=== PATIENT | female | born 1955 | race Caucasian/White ===

== ENCOUNTER 2024-04-02 20:05 | Inpatient (IN) ==
--- NOTE | 2024-04-02 20:31 | Emergency Department Note ---
History of Present Illness General Chief complaint: Leg Injury/Pain Stated complaint: FELL, RT LEG BREAK Time Seen by Provider: 04/02/24 20:19 History of Present Illness This 69-year-old female presents the ER for with a Maisonneuve fracture of the right leg. Patient was seen at [facility] and was splinted and she did not want to stay there for surgery and came here. Patient states she tripped and fell. Patient denies head injury, chest pain, dyspnea, numbness, tingling or any other medical complaints. She states she is healthy with no active medical problems. Allergies Allergy/AdvReac Type Severity Reaction Status Date / Time Penicillins Allergy Rash Verified 04/02/24 21:05 Past Med/Surg History Problem List (Updated 04/02/24 @ 21:32 by Giovana Odell PA-C) Closed fracture of right lower leg (Acute) Social History Smoking Status: Never smoker Preferred Language: Turkmen Feels Safe at Home: Yes Review of Systems A total of 10 systems reviewed and were otherwise negative Physical Exam Vital Signs Vital Signs - 24 hr 04/02/24 20:13 04/02/24 20:45 04/02/24 21:30 Temperature 36.5 C Temperature Source Temporal Artery Scan Pulse Rate 80 82 Pulse Rate [Apical] 71 Respiratory Rate 16 22 20 Respiratory Effort / Characteristics Non-Labored Non-Labored Spontaneous Respiratory Depth Normal Normal Respiratory Pattern Regular Regular Blood Pressure 153/111 H 164/85 H Blood Pressure [Right Arm] 160/86 H Blood Pressure Mean 125 111 Blood Pressure Mean [Right Arm] 110 Blood Pressure Position [Right Arm] Semi-fowlers Pulse Oximetry 95 98 97 Oxygen Delivery Method Room Air Room Air Room Air Sepsis Recent Fever Within 48 Hours No Sepsis New/Unexplained Change in Mental Status N/A Sepsis Action Taken by Nursing No Action Required 04/02/24 21:43 Temperature 37.0 C Temperature Source Oral Pulse Rate Pulse Rate [Apical] Respiratory Rate Respiratory Effort / Characteristics Respiratory Depth Respiratory Pattern Blood Pressure Blood Pressure [Right Arm] Blood Pressure Mean Blood Pressure Mean [Right Arm] Blood Pressure Position [Right Arm] Pulse Oximetry Oxygen Delivery Method Sepsis Recent Fever Within 48 Hours Sepsis New/Unexplained Change in Mental Status Sepsis Action Taken by Nursing VITALS: Vitals are noted on the nurse's note and reviewed by myself. Vital signs stable. GENERAL: Pleasant female, in no acute distress, nondiaphoretic, well-developed well-nourished. SKIN: Capillary reflex less than 2 seconds. HEENT: Normocephalic. PERRLA. EOMI. Nares patent. Mucous membranes moist. Neck is supple without nuchal rigidity. HEART: Regular rate and rhythm LUNGS: Clear to auscultation bilaterally without wheezes, rales or rhonchi. No retractions or accessory muscle use. MUSCULOSKELETAL: No gross musculoskeletal defects. Right lower leg tender to palpation over the proximal tib-fib and distal tib-fib. Right knee femur and foot nontender to palpation. NEURO: Patient was alert and oriented to person place and time. No focal neurological deficits. Course Administered Medications Discontinued Medications Acetaminophen (Ofirmev) 1,000 mg in 100 mls @ 400 mls/hr IV NOW STA Stop: 04/02/24 20:41 Last Infusion: 04/02/24 21:20 Dose: Infused Documented By: Admin: 04/02/24 21:04 Dose: 400 mls/hr Documented By: RAUL Morphine Sulfate (Morphine Sulfate 4 Mg/Ml 1 Ml Carp\Vial) 4 mg IV NOW STA Stop: 04/02/24 20:28 Last Admin: 04/02/24 21:04 Dose: 4 mg Documented By: RAUL Medical Decision Making Medical Records Attestation: I reviewed the patient's medical records. Home Medications Current Medication List: was personally reviewed by me Laboratory Data Attestation: I reviewed the patient's lab results. 04/02/24 20:55 04/02/24 20:55 Lab Results 04/02/24 Range/Units 20:55 WBC 9.67 (4.8-10.8) K/ul RBC 4.66 (4.20-5.40) M/uL Hgb 14.4 (12.0-16.0) g/dl Hct 41.3 (37.0-47.0) % MCV 88.6 (80.0-100.0) fL MCH 30.9 (25.0-34.0) pg MCHC 34.9 (32.0-36.0) g/dL RDW Std Deviation 40.3 (36.4-46.3) fL RDW Coeff of Ad 12.4 (11.5-14.5) % Plt Count 153 (130-400) K/uL MPV 11.3 (9.4-12.4) fL Immature Gran % (Auto) 0.2 % Neut % (Auto) 81.7 % Lymph % (Auto) 12.6 % [place] % (Auto) 5.2 % Eos % (Auto) 0.1 % Baso % (Auto) 0.2 % Neut # (Auto) 7.90 H (1.40-6.50) K/uL Lymph # (Auto) 1.22 (1.20-3.40) K/uL [place] # (Auto) 0.50 (0.11-0.59) K/uL Eos # (Auto) 0.01 (0.00-0.50) K/uL Baso # (Auto) 0.02 (0.00-0.20) K/uL Immature Gran # (Auto) 0.02 (0.01-0.20) K/uL Sodium 138 (136-145) mmol/L Potassium 4.1 (3.5-5.1) mmol/L Chloride 108 H (98-107) mmol/L Carbon Dioxide 22 (21-32) mmol/L Anion Gap 8 (3-11) BUN 13 (6-23) mg/dl Creatinine 0.70 (0.6-1.2) mg/dl Est Cr Clr Drug Dosing 90.2 ml/min eGFR 93.56 BUN/Creatinine Ratio 18.6 (10-20) Glucose 125 H (70-99(Fasting)) mg/dl Calcium 9.0 (8.6-10.3) mg/dl Total Bilirubin 0.5 (0.2-1.0) mg/dl AST 19 (13-39) U/L ALT 17 (7-52) U/L Alkaline Phosphatase 77 (34-104) U/L Total Protein 6.8 (6.0-8.3) gm/dl Albumin 4.1 (3.4-5.0) gm/dl Globulin 2.7 (2.5-4.0) gm/dl Albumin/Globulin Ratio 1.5 (0.9-2) Imaging Data Attestation: I personally reviewed and interpreted this imaging study as follows: MDM Narrative Prior records/ancillary studies reviewed. Triage Nursing notes reviewed. Additional history obtained from family. The patient's history was concerning for traumatic injury Differential diagnosis: Etiologies such as fracture, dislocation, intra-abdominal, pneumothorax, intrathoracic , intracranial, neurologic, as well as other traumatic pathologies were entertained. Physical examination findings: As above. The patients vitals were stable. ER treatment provided: Tylenol and morphine were ordered Splinting Indication: Maisonneuve fracture Location: Right lower leg Type of fx: Closed, displaced Verbal consent obtained. Risks and benefits were explained with the usual customary discussion. The injured extremity was identified. The patient was prepped and measured for the placement of a stirrup and posterior ortho-glass splint. Splint applied in the standard fashion over a layer of webril and secured using an elastic bandage. Set into a position of function. Normal neurovascular status after placement verified by me. The patient tolerated the procedure well and the care of the splint was discussed with the patient/family. No complications. An order was placed for continuous cardiac monitoring. The monitor shows a rate of 60-100 with a sinus rhythm per my interpretation. On reassessment the patient felt better. Vital signs were stable. Diagnostic interpretation by me: The labs Independently Interpreted by myself revealed no worrisome leukocytosis, glucose 125. Stable H&H. Imaging studies: Tib-fib and ankle x-rays concerning for Maisonneuve fracture per my independent interpretation. These were uploaded into the PACS system that were done at [facility] Consultation: A consultation was placed with hospitalist. The case was discussed and diagnostics were reviewed. The patient was evaluated for admission. This appears to be consistent with unstable right lower leg fracture, Maisonneuve fracture. Patient was in too much pain to go home. Medicine was consulted and the case was discussed. Patient will be admitted to the medical service.. By the evaluation outlined above emergent etiologies such as intra- abdominal, pneumothorax, pulmonary contusion, hemothorax, intracranial, neurologic,as well as others were deemed relatively unlikely. The pt informed about the findings as listed above. All questions were answered and pleased with the treatment. The chart was completed utilizing [employer] Speech voice recognition software. Grammatical errors, random word insertions, pronoun errors, and incomplete sentences are an occassional consequence of this system due to software limitations, ambient noise, and hardware issues. Any formal questions or concerns about the content, text, or information contained within the body of this dictation should be directly addressed to the physician web production assistant for clarification. Impression & Plan Closed fracture of right lower leg Discharge Plan Visit Data Chief Complaint: Leg Injury/Pain Stated Complaint: FELL, RT LEG BREAK ED Provider: Ariana Jane ED Midlevel Provider: Giovana Odell Discharge Problem: Closed fracture of right lower leg Patient Disposition: Admitted As Inpatient Condition: Good Forms Stand Alone Forms: [facility] Referrals Referrals: PCP,NO [Physician] - Discharge Problem: Closed fracture of right lower leg Qualifiers: Encounter type: initial encounter Qualified Code(s): S82.91XA - Unspecified fracture of right lower leg, initial encounter for closed fracture
[2024-04-02] MEDS ORDERED: ACETAMINOPHEN 325 MG TAB PO PRN (20:40)
[2024-04-02] MEDS ORDERED: oxyCODONE HCL IR 5 MG TAB (IMMEDIATE RELEASE) PO PRN (20:40)
[2024-04-02] MEDS ORDERED: MoRPHine SULFATE 4 MG/ML 1 ML CARP\\VIAL IV PRN (20:40)
[2024-04-02] MEDS ORDERED: LORazepam 0.5 MG TAB PO PRN (20:40)
[2024-04-02] MEDS ORDERED: PROMETHAZINE 6.25 MG/50.25 ML BAG IV PRN (20:40)
[2024-04-02] MEDS: ACETAMINOPHEN 1,000 MG/100 ML VIAL IV STA (21:04)
[2024-04-02] MEDS: MoRPHine SULFATE 4 MG/ML 1 ML CARP\\VIAL IV STA (21:04)
[2024-04-02 21:33] LABS: Albumin Globulin Ratio 1.5 (0.9-2); Albumin Level 4.1 gm/dl (3.4-5.0); BUN Creatinine Ratio 18.6 (10-20); Bilirubin,Total 0.5 mg/dl (0.2-1.0); Creatinine Clr Calc Pharmacy 90.2 ml/min; Globulin 2.7 gm/dl (2.5-4.0); Potassium 4.1 mmol/L (3.5-5.1); Total Protein 6.8 gm/dl (6.0-8.3)
[2024-04-02 21:41] LABS: Basophils # (auto) 0.02 K/uL (0.00-0.20); Basophils % (auto) 0.2 %; Eosinophils # (auto) 0.01 K/uL (0.00-0.50); Eosinophils % (auto) 0.1 %; Hematocrit (blood only) 41.3 % (37.0-47.0); Hemoglobin 14.4 g/dl (12.0-16.0); Immature Granulocytes # (auto) 0.02 K/uL (0.01-0.20); Immature Granulocytes % (auto) 0.2 %; Lymphocytes # (auto) 1.22 K/uL (1.20-3.40); Lymphocytes % (auto) 12.6 %; Mean Corpuscular Hemoglobin 30.9 pg (25.0-34.0); Mean Corpuscular Hgb Conc 34.9 g/dL (32.0-36.0); Mean Corpuscular Volume 88.6 fL (80.0-100.0); Mean Platelet Volume 11.3 fL (9.4-12.4); Monocytes % (auto) 5.2 %; Neutrophils % (auto) 81.7 %; Platelet Count 153 K/uL (130-400); RDW Coefficient of Variation 12.4 % (11.5-14.5); RDW Standard Deviation 40.3 fL (36.4-46.3); Red Blood Count 4.66 M/uL (4.20-5.40); White Blood Count 9.67 K/ul (4.8-10.8)
--- NOTE | 2024-04-02 21:53 | History & Physical Report ---
Date of Service April 02, 2024 Assessment & Plan (1) Asymptomatic hypertensive urgency: Plan: Secondary to traumatic RLE fracture Likely chronic BP elevation given LAE on EKG Hyperglycemia rule out DM GMF Initiate lisinopril Orthopedics consult Re: Traumatic RLE fracture (Patient requesting for Dr. Strong.) N.p.o. after midnight until patient seen by orthopedics in anticipation of procedure Check hemoglobin A1c DVT prophylaxis. SCDs re: possible surgery Full code Text document was generated using [email or web address] voice recognition software. It may contain grammatical or spelling errors. Kindly contact undersigned for clarification of any documentation item in question. History of Present Illness Chief Complaint: Right leg fracture Primary Care Provider: Dr. Sigala History obtained from patient, family, and records. No significant medical history. Patient tripped outside her home today causing her to fall down on her right leg. No head trauma, no chest pain, no syncope, no SOB. Achy right lower leg pain. Patient unable to get up. SBP 190s upon EMS arrival at patient's home. Patient transported by EMS to [facility] ER. Patient told she had a Maisonneuve fracture of the right lower leg. Admission for surgery recommended but patient declined. Patient preferred to go to [facility] for orthopedic services following her physician brother's recommendations. Patient transported to [facility] by . Highest SBP of 180s documented at the ER. 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 Allergies Allergy/AdvReac Type Severity Reaction Status Date / Time Penicillins Allergy Rash Verified 04/02/24 21:05 Home Medications Medication Instructions Recorded Confirmed Type No Known Home Medications 04/02/24 04/02/24 History Past Med/Surg History Problem List Asymptomatic hypertensive urgency Closed fracture of right lower leg (Acute) Social History Smoking Status: Never smoker Hx Alcohol Use: No Hx Substance Use: No Preferred Language: Emirati Communication Ability: Effective Sap Specialist Required: No Beliefs That Will Affect Care: None Current Living Situation: Spouse Other Information That Helps Us Care for You: No Feels Safe at Home: Yes Safety Concerns: Feels Safe At This Time Assistive Devices: Glasses Review of Systems Review of Systems: As per HPI, all other systems reviewed and negative Physical Exam Physical Exam: GENERAL: Comfortable, pleasant, no respiratory distress SKIN: Normal color, warm HEENT: Bespectacled, [place] palpebral conjunctivae, no ptosis, moist buccal mucosa NECK : Supple, no tenderness CHEST : CTA, no tenderness HEART : RRR, no obvious murmurs ABDOMEN: Some distention, nontender EXTREMITIES : RLE splint, no other conspicuous deformities noted NEUROLOGIC : Coherent, no facial asymmetry, no other gross focality Results & Data Results & Data Vital Signs (Past 12 Hours) Vital Signs Temp Pulse Resp BP Pulse Ox O2 Del Method 04/02/24 20:13 36.5 C 80 16 153/111 H 95 Room Air Laboratory Results Laboratory Results WBC 9.67 K/ul (4.8-10.8) 04/02/24 20:55 RBC 4.66 M/uL (4.20-5.40) 04/02/24 20:55 Hgb 14.4 g/dl (12.0-16.0) 04/02/24 20:55 Hct 41.3 % (37.0-47.0) 04/02/24 20:55 MCV 88.6 fL (80.0-100.0) 04/02/24 20:55 MCH 30.9 pg (25.0-34.0) 04/02/24 20:55 MCHC 34.9 g/dL (32.0-36.0) 04/02/24 20:55 RDW Std Deviation 40.3 fL (36.4-46.3) 04/02/24 20:55 RDW Coeff of Ad 12.4 % (11.5-14.5) 04/02/24 20:55 Plt Count 153 K/uL (130-400) 04/02/24 20:55 MPV 11.3 fL (9.4-12.4) 04/02/24 20:55 Immature Gran % (Auto) 0.2 % 04/02/24 20:55 Neut % (Auto) 81.7 % 04/02/24 20:55 Lymph % (Auto) 12.6 % 04/02/24 20:55 [place] % (Auto) 5.2 % 04/02/24 20:55 Eos % (Auto) 0.1 % 04/02/24 20:55 Baso % (Auto) 0.2 % 04/02/24 20:55 Neut # (Auto) 7.90 K/uL (1.40-6.50) H 04/02/24 20:55 Lymph # (Auto) 1.22 K/uL (1.20-3.40) 04/02/24 20:55 [place] # (Auto) 0.50 K/uL (0.11-0.59) 04/02/24 20:55 Eos # (Auto) 0.01 K/uL (0.00-0.50) 04/02/24 20:55 Baso # (Auto) 0.02 K/uL (0.00-0.20) 04/02/24 20:55 Immature Gran # (Auto) 0.02 K/uL (0.01-0.20) 04/02/24 20:55 Sodium 138 mmol/L (136-145) 04/02/24 20:55 Potassium 4.1 mmol/L (3.5-5.1) 04/02/24 20:55 Chloride 108 mmol/L (98-107) H 04/02/24 20:55 Carbon Dioxide 22 mmol/L (21-32) 04/02/24 20:55 Anion Gap 8 (3-11) 04/02/24 20:55 BUN 13 mg/dl (6-23) 04/02/24 20:55 Creatinine 0.70 mg/dl (0.6-1.2) 04/02/24 20:55 Est Cr Clr Drug Dosing 90.2 ml/min 04/02/24 20:55 eGFR 93.56 04/02/24 20:55 BUN/Creatinine Ratio 18.6 (10-20) 04/02/24 20:55 Glucose 125 mg/dl (70-99(Fasting)) H 04/02/24 20:55 Calcium 9.0 mg/dl (8.6-10.3) 04/02/24 20:55 Total Bilirubin 0.5 mg/dl (0.2-1.0) 04/02/24 20:55 AST 19 U/L (13-39) 04/02/24 20:55 ALT 17 U/L (7-52) 04/02/24 20:55 Alkaline Phosphatase 77 U/L (34-104) 04/02/24 20:55 Total Protein 6.8 gm/dl (6.0-8.3) 04/02/24 20:55 Albumin 4.1 gm/dl (3.4-5.0) 04/02/24 20:55 Globulin 2.7 gm/dl (2.5-4.0) 04/02/24 20:55 Albumin/Globulin Ratio 1.5 (0.9-2) 04/02/24 20:55 Diagnostic Findings EKG as per my interpretation : Rate 70, NSR, LAD, LAFB, LAE, no ischemia
[2024-04-02] MEDS: cloNIDine HCL 0.1 MG TAB PO ONE (22:57)
[2024-04-03] MEDS: lisinopril 2.5 MG TAB PO SCH (00:21)
--- NOTE | 2024-04-03 07:31 | Anesthesiology Consultation ---
Date of Service April 03, 2024 Assessment & Plan Chart Review Chart Review: Acceptable Risk for Surgery and Patient NOT seen in Pre Admission Testing Consults Requested none ASA ASA2 Proposed Anesthesia Anesthesia Type: General History Surgery Operation Date: 04/03/24 09:00 Proposed Procedures p Intramedullary Nail Tibia(Right) - Franki Canseco DO Height/Weight Height: 5 ft 9 in Weight: 85 kg Allergies Allergy/AdvReac Type Severity Reaction Status Date / Time Penicillins Allergy Rash Verified 04/02/24 21:05 Medications Home Medications Medication Instructions Recorded Confirmed Last Taken No Known Home Medications 04/02/24 04/02/24 Unknown Active Medications Generic Name Dose Route Start Last Admin Trade Name Freq PRN Reason Stop Dose Admin Lisinopril 2.5 mg 04/02/24 22:10 04/03/24 00:21 Lisinopril 2.5 Mg Tab PO 05/02/24 22:09 Not Given HS BARBARA Exercise / Class Metabolic Activity II 4-5 Yardwork/Stairs/Walk up hill Past Anesthesia History No Hx of Anesthesia Complications and No Family Hx of Anesthesia Complications History of PONV No Hx of PONV and No Hx of Motion Sickness Social History Smoking Status: Never smoker Hx Alcohol Use: No Hx Substance Use: No substance use type: does not use Physical Exam Vital Signs Last Vital Signs Temp 36.3 C L 04/02/24 23:39 Pulse 82 04/02/24 23:39 Resp 16 04/02/24 23:39 BP 145/75 H 04/03/24 00:21 Pulse Ox 95 04/02/24 23:39 O2 Del Method Room Air 04/02/24 23:39 Testing Laboratory Results 04/02/24 20:55 04/02/24 20:55 Electrocardiogram Date: 04/02/24 Findings: + NSR @ (@ 33)
[2024-04-03] MEDS ORDERED: ONDANSETRON INJ 2 MG/ML 2 ML VIAL ONE (07:35)
[2024-04-03] MEDS ORDERED: MIDAZOLAM HCL 1 MG/ML 2ML VIAL ONE (07:35)
[2024-04-03] MEDS ORDERED: ROCURONIUM BROMIDE 10 MG/ML 5 ML VIAL IV ONE (07:35)
[2024-04-03] MEDS ORDERED: fentaNYL citrate PF 100 MCG/2 ML VIAL ONE (07:35)
[2024-04-03] MEDS ORDERED: SUGAMMADEX SODIUM 200 MG/2 ML VIAL IV ONE (07:35)
[2024-04-03] MEDS ORDERED: PROPOFOL IV EMULSION 10 MG/ML 20 ML VIAL IV ONE (07:35)
--- NOTE | 2024-04-03 07:47 | Orthopedic Consultation ---
Date of Service April 03, 2024 Assessment & Plan (1) Closed fracture of right lower leg: We discussed diagnosis and treatment options at bedside. I am recommending intramedullary nail fixation of the right tibia. She understands the risk, benefits, and alternatives to procedures like an proceed. Questions were answered at bedside. Time was spent scribing the procedure and postop expectations. The decision was made for surgery and we should proceed with it later this morning. History of Present Illness Reason for Consultation: Right tibial shaft fracture. Requesting Physician: . Attending Physician: Minoo Harp MD Julita is a pleasant 69-year-old female who slipped and fell in some acorns yesterday. She twisted her right leg. She had severe right leg pain. She went to [facility] emergency room and radiographs demonstrated a displaced right tibial shaft fracture. She was then transferred to [facility]. Orthopedics was consulted to evaluate and treat.. 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 Physical Exam On physical exam of the right leg, she has a trauma splint in place. She is active motion of her toes. She is neurovascular intact.. Constitutional WD/WN, vitals as above Eyes PERRL, conjunctivae normal, anicteric sclerae ENMT external ear and nose normal, oropharynx normal Neck trachea midline, no thyromegaly Respiratory normal respiratory effort Cardiovascular RRR, no murmur, no edema Gastrointestinal (Abdomen) normal bowel sounds, soft, nontender, no hepatosplenomegaly Psychiatric A+Ox3, euthymic affect Results & Data Results & Data Laboratory Results . Diagnostic Findings X-rays of the right ankle show a displaced right tibial shaft fracture. The fractures at the distal third of the tibial diaphysis. There is also an associated proximal fibular fracture.. PG Care Time/CCT Total # of Minutes Spent Total Time Spent with Patient: Total time spent is greater than 50% in coordination of care (as documented) at patient's floor/unit and/or counseling patient: Coding Level of Care Code 14328 IN/OBS CONSULT LVL 4,60M (57 - DECISION FOR SURGERY) Diagnoses Closed fracture of right lower leg S82.91XA Encounter type: initial encounter (1) Closed fracture of right lower leg Encounter type: initial encounter Qualified Code(s): S82.91XA - Unspecified fracture of right lower leg, initial encounter for closed fracture
--- NOTE | 2024-04-03 07:47 | History & Physical Bridge Note ---
Date of Service April 03, 2024 History & Physical Bridge Note I have examined the patient, reviewed the History & Physical and in the interval since the performance of the History & Physical I have noted the following changes of clinical significance: no changes noted
[2024-04-03 08:07] LABS: Estimated Average Glucose 114 mg/dl; Hemoglobin A1C 5.6 % (4.5-5.6)
--- NOTE | 2024-04-03 08:24 | Hospitalist Progress Note ---
Date of Service April 03, 2024 Assessment & Plan (1) Closed fracture of right lower leg: (2) Asymptomatic hypertensive urgency: Plan Ms Ford is a 69 year old woman with no reported medical history admitted for management of right tib-fib fracture sustained after a fall, now s/p intramedullary nailing of right tibia on 04/03. #Closed right lower extremity fracture s/p intramedullary nail 04/[address] Canseco scheduling tylenol continue prn analgesia PT/OT placed apixaban dvt ppx per ortho Ortho following, appreciate recs Continue IS #Hypertensive urgency likely iso pain, as well as possible chronicity started on lisinopril, however given no CKD or know cardiac disease will transition to first like amlodipine CTM closely iso post operative management #Hyperglycemia rule out DM A1C 5/6%, CTM DVT prophylaxis. elquis 2.5 bid Full code Admission and Anticipated Discharge Date Admission Date: April 02, 2024 Subjective evaluated post operatively denies any acute pain at time of exam or other concerns Physical Exam Constitutional: WD/WN, vitals as above Respiratory: normal respiratory effort, lungs clear to auscultation Cardiovascular: RRR, no murmur, no edema Gastrointestinal (Abdomen): normal bowel sounds, soft, nontender, no hepatosplenomegaly Musculoskeletal: right lower extremity in dressing CDI Results & Data Results & Data Vital Signs (Past 12 Hours) Vital Signs Temp Pulse Pulse Pulse Resp BP BP 04/03/24 07:44 37.0 C 79 18 04/03/24 00:21 145/75 H 04/02/24 23:39 04/02/24 23:39 36.3 C L 82 16 04/02/24 22:56 82 16 04/02/24 22:30 04/02/24 22:00 63 16 04/02/24 21:43 37.0 C 04/02/24 21:30 71 20 04/02/24 20:45 82 22 164/85 H BP Pulse Ox O2 Del Method 04/03/24 07:44 175/83 H 96 Room Air 04/03/24 00:21 04/02/24 23:39 Room Air 04/02/24 23:39 188/83 H 95 Room Air 04/02/24 22:56 96 Room Air 04/02/24 22:30 147/73 H 04/02/24 22:00 153/75 H 94 04/02/24 21:43 04/02/24 21:30 160/86 H 97 Room Air 04/02/24 20:45 98 Room Air Laboratory Results Short CBC 04/02/24 Range/Units 20:55 WBC 9.67 (4.8-10.8) K/ul Hgb 14.4 (12.0-16.0) g/dl Hct 41.3 (37.0-47.0) % Plt Count 153 (130-400) K/uL BMP 04/02/24 20:55 Sodium 138 Potassium 4.1 Chloride 108 H Carbon Dioxide 22 BUN 13 Creatinine 0.70 Glucose 125 H Calcium 9.0 Liver Function 04/02/24 Range/Units 20:55 Total Bilirubin 0.5 (0.2-1.0) mg/dl AST 19 (13-39) U/L ALT 17 (7-52) U/L Alkaline Phosphatase 77 (34-104) U/L Albumin 4.1 (3.4-5.0) gm/dl Medications Administered Home Medications Medication Instructions Recorded Confirmed Last Taken No Known Home Medications 04/02/24 04/02/24 Unknown Active Medications Generic Name Dose Route Start Last Admin Trade Name Tomiq PRN Reason Stop Dose Admin Ketorolac Tromethamine 15 mg 04/03/24 12:00 04/03/24 12:07 Ketorolac Tromethamine 15 Mg/Ml Vial IV 04/05/24 06:01 15 mg Q6H BARBARA Administration Lisinopril 2.5 mg 04/02/24 22:10 04/03/24 00:21 Lisinopril 2.5 Mg Tab PO 05/02/24 22:09 Not Given HS BARBARA (1) Closed fracture of right lower leg Encounter type: initial encounter Qualified Code(s): S82.91XA - Unspecified fracture of right lower leg, initial encounter for closed fracture
[2024-04-03] MEDS ORDERED: ceFAZolin 330 MG/ML 1 GM VIAL ONE (08:51)
[2024-04-03] MEDS ORDERED: ONDANSETRON INJ 2 MG/ML 2 ML VIAL IV PRN (09:00)
[2024-04-03] MEDS ORDERED: ePHEDrine sulfate 50 MG/ML AMP IV PRN (09:00)
[2024-04-03] MEDS ORDERED: PROMETHAZINE HCL 6.25 MG in SODIUM CHLORIDE 0.9% 50 ML IV PRN (09:00)
[2024-04-03] MEDS ORDERED: ATROPINE SULFATE 0.1 MG/ML 10ML SYR IV PRN (09:00)
[2024-04-03] MEDS ORDERED: HYDROmorphone INJ 1 MG/ML SYRINGE IV PRN (09:00)
[2024-04-03] MEDS ORDERED: FLUMAZENIL 0.1 MG/1 ML 10 ML VIAL IV PRN (09:00)
[2024-04-03] MEDS ORDERED: NALOXONE HCL 0.4 MG/1 ML VIAL/CARP IV PRN ×2 (09:00→11:35)
[2024-04-03] MEDS ORDERED: fentaNYL citrate PF 100 MCG/2 ML VIAL IV PRN (09:00)
[2024-04-03] MEDS: ENOXAPARIN INJ 30 MG/0.3 ML SYR SQ SCH (10:55)
--- NOTE | 2024-04-03 10:55 | Operative Report ---
PG Post Operative Report Pre & Post Diagnosis Operation Date: 04/03/24 09:00 Pre-Op Diagnosis: Displaced right tib-fib fracture Post-Op Diagnosis: Displaced right tib-fib fracture I identified the patient and participated in the time-out.: Yes Procedure Operation Date: 04/03/24 09:00 Actual Procedures p Intramedullary Nail Fixation of Right Tibia(Right) - Franki Canseco DO Surgeon Franki Canseco DO Foundry Tender None Estimated Blood Loss 30 Findings Consistent with Post-Op Diagnosis Specimens None Description of Procedure On April 03, 2024 Julita was brought down from her hospital bed to the preoperative holding area. The operative extremity identified and signed. She was given a preoperative antibiotic. She was taken back the operative room and laid on table supine position. She was put under general anesthesia. The right leg was prepped and draped sterile fashion. A timeout was done. The patient and the operative extremity was properly identified. A midline incision was made just medial to the patella tendon. Dissection was taken down through the fascia. The arthrotomy was made just medial to the patella tendon. A small portion of fat pad was excised. The knee was then flexed. A guidepin was then placed in the center of the tibial plateau along the anterior rim. It was advanced down the tibial canal. Appropriate placement of the guidepin was checked on orthogonal fluoroscopic images. An opening reamer was then used to open the tibial canal. A ball-tipped guidewire was then sent down the tibia to the ankle. I was struggling maintaining adequate reduction of the fracture. A small incision was then made over the fracture site along the medial tibial crest. Dissection was taken down to directly to the fracture. A large reduction clamp was used and the tibia was reduced. Sequential reaming up to a size 9.5 mm reamer was done. A Synthes 8 mm x 360 mm TFN nail was then impacted into place. Appropriate placement was checked on orthogonal fluoroscopic images. The fracture remained reduced. Once I was happy with the placement of the tibial nail, 2 proximal locking screws were placed in a medial to lateral direction. Attention was then turned to the distal tibia. 3 static locking screws were then placed in the distal fracture fragment. This was done using perfect [place] technique. All clamps and out rigors were then removed. A single flush Was placed on the top of the tibial nail. Final fluoroscopic images showed acceptable alignment of the fracture and good placement of the screws and the hardware. The wounds were then irrigated. The arthrotomy was closed with #1 Vicryl suture. Skin was closed with 2-0 Vicryl and luis alfredo. Small screw holes were closed with 3-0 nylon suture. She was then placed in a posterior splint. She was then extubated and transferred back to a hospital bed. She was taken to the postanesthesia care unit in stable condition. She tolerated the procedure well. I attest to the content of the Intraoperative Record and any orders documented therein. Any exceptions are noted below.
--- NOTE | 2024-04-03 11:17 | Fluoroscopy Report ---
FL tibia/fibula RT 2V CLINICAL HISTORY: RT TIB IM NAIL- DR. Morales right ankle fracture COMPARISON STUDY: Ankle radiographs of same day FLUOROSCOPY TIME: 148.5 seconds FLUOROSCOPY IMAGES: 4 EXPOSURE DOSE: 8.03 mGy FINDINGS: Status post placement of an intramedullary kelsey with proximal and distal fixation screws fix ating the acute distal tibial fracture. There is near-anatomic alignment. Acute mildly displaced comm inuted proximal fibular fracture. Expected postoperative soft tissue swelling. IMPRESSION: Fluoroscopic assistance as above. ACT 112: Negative or not required by law. Electronically signed by: Diogenes Marie M.D. 04/03/2024 11:15 AM
--- NOTE | 2024-04-03 11:29 | Anesthesiology Progress Note ---
Date of Service April 03, 2024 Anesthesia Post Procedure Vital Signs Vital Signs: Temp Pulse Pulse Pulse Resp BP BP 04/03/24 11:15 36.8 C 95 H 23 04/03/24 11:05 100 H 22 04/03/24 10:55 96 H 18 04/03/24 10:49 37.0 C 101 H 20 04/03/24 07:44 37.0 C 79 18 04/03/24 00:21 145/75 H 04/02/24 23:39 04/02/24 23:39 36.3 C L 82 16 04/02/24 22:56 82 16 04/02/24 22:30 04/02/24 22:00 63 16 04/02/24 21:43 37.0 C 04/02/24 21:30 71 20 04/02/24 20:45 82 22 164/85 H 04/02/24 20:13 36.5 C 80 16 153/111 H BP Pulse Ox O2 Del Method O2 Flow Rate 04/03/24 11:15 170/87 H 92 Room Air 04/03/24 11:05 166/94 H 93 Oxymask 2 04/03/24 10:55 176/94 H 93 Oxymask 4 04/03/24 10:49 170/93 H 92 Oxymask 4 04/03/24 07:44 175/83 H 96 Room Air 04/03/24 00:21 04/02/24 23:39 Room Air 04/02/24 23:39 188/83 H 95 Room Air 04/02/24 22:56 96 Room Air 04/02/24 22:30 147/73 H 04/02/24 22:00 153/75 H 94 04/02/24 21:43 04/02/24 21:30 160/86 H 97 Room Air 04/02/24 20:45 98 Room Air 04/02/24 20:13 95 Room Air Transfer of Care Handoff Completed per policy Notes Mental Status: alert / awake / arousable Patient Amnestic to Procedure: Yes Nausea / Vomiting: adequately controlled Pain: adequately controlled Airway Patency, RR, SpO2: stable & adequate BP & HR: stable & adequate Hydration State: stable & adequate Anesthetic Complications: no major complications apparent
[2024-04-03] MEDS ORDERED: MAGNESIUM HYDROXIDE SUSP 30 ML UDC PO PRN (11:35)
[2024-04-03] MEDS ORDERED: HYDROmorphone INJ 0.5 MG/0.5 ML SYR IV PRN (11:35)
[2024-04-03] MEDS ORDERED: bisacodyL 10 MG SUPP PR PRN (11:35)
[2024-04-03] MEDS ORDERED: METOCLOPRAMIDE HCL INJ 5 MG/ML 2 ML VIAL IV PRN (11:35)
[2024-04-03] MEDS: KETOROLAC TROMETHAMINE 15 MG/ML VIAL IV SCH (12:07)
[2024-04-03] MEDS: BUPIVACAINE/EPINEPHRINE 0.25% 1:200,000 30 ML VIAL ONE (12:38)
--- NOTE | 2024-04-03 14:39 | XRay Report ---
EXAM: Radiographs of the Right Ankle 3 Views INDICATION: Fracture. Casted. TECHNIQUE: Frontal, lateral and oblique views of the right ankle. Images obtained at 7:16 AM. COMPARISON: No relevant prior studies available. FINDINGS: Limitations: None. Bones/joints: There is no acute mildly comminuted largely oblique fracture of the distal tibial shaft with 1 shaft width lateral displacement and approximately 2 cm override. Partially imaged acute proximal fibular fracture. The ankle mortise is symmetric. There is a tiny developing plantar calcaneal spur. Soft tissues: The place there is a plaster cast. No other foreign body noted. IMPRESSION: Acute fracture right distal tibial and proximal fibular shafts. ACT 112: Positive. There are findings on this exam that require communication between the performing entity and the patient following Patient Test Result Information Act ([place] ACT 112) guidelines. Electronically signed by Mera Mejia 04-03-2024 2:39 PM
[2024-04-03] MEDS: amLODIPine BESYLATE 5 MG TAB PO ONE (14:53)
[2024-04-03] MEDS: ACETAMINOPHEN 500 MG TAB PO SCH (14:53)
[2024-04-03 15:20] VITALS: RESP 16
[2024-04-03] MEDS: ceFAZolin 1000MG 1,000 MG/7.5 ML SYR IV SCH (17:58)
--- NOTE | 2024-04-03 19:03 | XRay Report ---
EXAM: Radiographs of the Right Tibia and Fibula 2 Views INDICATION: Fracture. TECHNIQUE: Frontal and lateral views of the right tibia and fibula. Images obtained at 7:15 AM. COMPARISON: No relevant prior studies available. FINDINGS: Bones/joints: There is an acute oblique fracture of the distal tibial shaft displaced laterally by three-quarter shaft width and minimally distracted. There is an acute comminuted fracture of the proximal fibular neck which is minimally impacted and displaced 1 cortex with laterally. Soft tissues: The leg is casted. IMPRESSION: Acute fractures right distal tibial and proximal fibular shafts. ACT 112: Positive. There are findings on this exam that require communication between the performing entity and the patient following Patient Test Result Information Act ([place] ACT 112) guidelines. Electronically signed by Mera Mejia 04-03-2024 7:02 PM
--- NOTE | 2024-04-03 19:30 | Electrocardiogram Report ---
Test Reason : Blood Pressure : */* mmHG Vent. Rate : 70 BPM Atrial Rate : 70 BPM P-R Int : 140 ms QRS Dur : 92 ms QT Int : 404 ms P-R-T Axes : 63 9 34 degrees QTcB Int : 436 ms Normal sinus rhythm Normal ECG No previous ECGs available Confirmed by Phyllis Hunt (Ara) on 04/03/2024 7:29:39 PM Referred By: Rufus Dominguez Confirmed By: Phyllis Hunt
[2024-04-03] MEDS: DOCUSATE SODIUM 100 MG CAP PO SCH (21:31)
[2024-04-03] MEDS: SENNA 8.6 MG TAB PO SCH (21:33)
[2024-04-04] MEDS: oxyCODONE HCL IR 5 MG TAB (IMMEDIATE RELEASE) PO PRN (01:27)
--- NOTE | 2024-04-04 07:23 | Orthopedic Progress Note ---
Date of Service April 04, 2024 Assessment & Plan (1) Closed fracture of right lower leg: Overall she is doing fairly well. She is not having too much pain. She will be seen by physical therapy today for ambulation with nonweightbearing instructions on the right leg. I do want her on Eliquis 2.5 mg twice a day for 6 weeks to help with the blood clots. She can be discharged to home today if she does well with therapy. She will follow-up with orthopedics in 2 weeks. Full orthopedic discharge instructions were placed in the discharge summary. Jaquelin Cancino was seen and examined at bedside this morning. Overall she is doing very well. She is not having much pain in the right leg. She has not been up and ambulating yet. She has no complaints.. Review of Systems All systems reviewed & are unremarkable except as noted in HPI & below. Physical Exam On physical exam of the right leg, the trauma splint in place. She is active motion of her toes. She has good capillary refill.. Results & Data Results & Data Laboratory Results . Diagnostic Findings . PG Care Time/CCT Total # of Minutes Spent Total Time Spent with Patient: Total time spent is greater than 50% in coordination of care (as documented) at patient's floor/unit and/or counseling patient: Coding Level of Care Code 96059 Post Operative Follow-Up Diagnoses Closed fracture of right lower leg S82.91XA Encounter type: initial encounter (1) Closed fracture of right lower leg Encounter type: initial encounter Qualified Code(s): S82.91XA - Unspecified fracture of right lower leg, initial encounter for closed fracture
[2024-04-04] MEDS: dexAMETHasone 4 MG TAB PO SCH (07:33)
[2024-04-04] MEDS: MULTIVITAMIN TAB PO SCH (07:34)
[2024-04-04] MEDS: APIXABAN 2.5 MG TAB PO SCH (07:34)
[2024-04-04] MEDS: amLODIPine BESYLATE 5 MG TAB PO SCH (07:35)
[2024-04-04 07:52] LABS: Hematocrit (blood only) 38.2 % (37.0-47.0); Hemoglobin 12.7 g/dl (12.0-16.0); Mean Corpuscular Hemoglobin 30.8 pg (25.0-34.0); Mean Corpuscular Hgb Conc 33.2 g/dL (32.0-36.0); Mean Corpuscular Volume 92.7 fL (80.0-100.0); Mean Platelet Volume 11.1 fL (9.4-12.4); Platelet Count 120 K/uL (130-400); RDW Coefficient of Variation 13.1 % (11.5-14.5); RDW Standard Deviation 44.1 fL (36.4-46.3); Red Blood Count 4.12 M/uL (4.20-5.40); White Blood Count 7.01 K/ul (4.8-10.8)
[2024-04-04 07:58] LABS: BUN Creatinine Ratio 25.7 (10-20); Calcium 8.6 mg/dl (8.6-10.3); Creatinine Clr Calc Pharmacy 88.3 ml/min; Potassium 3.9 mmol/L (3.5-5.1)
--- NOTE | 2024-04-04 09:57 | Discharge Summary ---
Discharge Summary Date of Service April 04, 2024 Principal Dx & Hospital Course #1 = Principal Diagnosis (1) Closed fracture of right lower leg: (2) Asymptomatic hypertensive urgency: Plan Ms Ford is a 69 year old woman with no reported medical history admitted for management of right tib-fib fracture sustained after a fall, now s/p intramedullary nailing of right tibia on 04/03. #Closed right lower extremity fracture s/p intramedullary nail 04/[address] Canseco scheduling tylenol continue prn analgesia PT/OT placed apixaban dvt ppx per ortho Ortho following, appreciate recs Continue IS #Hypertensive urgency likely iso pain, as well as possible chronicity started on lisinopril, however given no CKD or know cardiac disease will transition to first like amlodipine CTM closely iso post operative management #Hyperglycemia rule out DM A1C 5/6%, CTM DVT prophylaxis. elquis 2.5 bid Full code Admission HPI Per Admitting Provider History obtained from patient, family, and records. No significant medical history. Patient tripped outside her home today causing her to fall down on her right leg. No head trauma, no chest pain, no syncope, no SOB. Achy right lower leg pain. Patient unable to get up. SBP 190s upon EMS arrival at patient's home. Patient transported by EMS to [facility] ER. Patient told she had a Maisonneuve fracture of the right lower leg. Admission for surgery recommended but patient declined. Patient preferred to go to [facility] for orthopedic services following her physician brother's recommendations. Patient transported to [facility] by . Highest SBP of 180s documented at the ER. 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 Updated Medication List Medication Instructions Recorded Confirmed Type acetaminophen 500 mg tablet 1,000 mg (2 x 500 mg) PO Q8H #0 04/04/24 Rx (Tylenol Extra Strength) tabs apixaban 2.5 mg tablet (Eliquis) 2.5 mg PO BID 6 weeks #84 tabs 04/04/24 Rx docusate sodium 100 mg capsule 100 mg PO BID #0 caps 04/04/24 Rx oxycodone 5 mg tablet 5 - 10 mg (1 - 2 x 5 mg) PO Q4H 04/04/24 Rx PRN severe pain (scale score 7-10) 5 days #20 tabs Hospital Stay Data Consultations 04/02/24 20:31 ED Decision to Admit Stat 04/02/24 23:38 Consult Orthopedic Surgery Routine Procedures Performed Operation Date: 04/03/24 09:00 Actual Procedures p Intramedullary Nail Fixation of Right Tibia(Right) - Franki Canseco, DO Diagnostic Imagining Performed 04/03/24 FL tibia/fibula RT 2V Routine Pending Results Patient Have Any Pending Studies at Discharge: No Discharge Instructions Given to Patient (Per Discharging Provider) Please continue to take Tylenol for mild-moderate pain. You can take up to 650mg to 1000mg every 8 hours for pain. You will be sent with Oxycodone, please take 1-2 tablets for severe pain every 4 hours. Please continue a stool softener to ensure a bowel movement every 1-2 days while on oxycodone.
--- NOTE | 2024-04-04 10:52 | Hospitalist Progress Note ---
Date of Service April 04, 2024 Assessment & Plan (1) Closed fracture of right lower leg: (2) Asymptomatic hypertensive urgency: Plan Ms Ford is a 69 year old woman with no reported medical history admitted for management of right tib-fib fracture sustained after a fall, now s/p intramedullary nailing of right tibia on 04/03. Patient to stay additional day to work with PT. Script completed for wheeled walker and bedside commode as patient is nonweightbearing on RLE #Closed right lower extremity fracture s/p intramedullary nail 04/[address] Canseco scheduling tylenol continue prn analgesia PT/OT placed: recommend additional session prior to d/c, plan for discharge tomorrow apixaban dvt ppx per ortho Ortho following, appreciate recs Continue IS #Hypertensive urgency *resolved likely iso pain, as well as possible chronicity started on lisinopril on admission, however, BP more stable s/p surgery Will discontinue antihypertensive with plans for patient to follow PCP for monitoring #Hyperglycemia rule out DM A1C 5/6%, CTM DVT prophylaxis. elquis 2.5 bid Full code Admission and Anticipated Discharge Date Admission Date: April 02, 2024 Subjective NAEO Patient NWB to RLE and with some difficult mobilizing, PT recommends additional day in hospital for equipment to be ordered and to ensure will be home with patient Patient states pain is controlled at this time and she will be able to be picked up by in afternoon Physical Exam Constitutional: WD/WN, vitals as above Respiratory: normal respiratory effort, lungs clear to auscultation Cardiovascular: RRR, no murmur, no edema Gastrointestinal (Abdomen): normal bowel sounds, soft, nontender, no hepatosplenomegaly Results & Data Results & Data Vital Signs (Past 12 Hours) Vital Signs Temp Pulse Resp BP Pulse Ox O2 Del Method 04/04/24 07:10 37.1 C 71 16 119/74 94 Room Air 04/04/24 03:00 36.5 C 70 16 112/73 94 Room Air Laboratory Results Short CBC 04/04/24 Range/Units 07:12 WBC 7.01 (4.8-10.8) K/ul Hgb 12.7 (12.0-16.0) g/dl Hct 38.2 (37.0-47.0) % Plt Count 120 L (130-400) K/uL BMP 04/04/24 07:12 Sodium 139 Potassium 3.9 Chloride 106 Carbon Dioxide 27 BUN 18 Creatinine 0.70 Glucose 108 H Calcium 8.6 Medications Administered Home Medications Medication Instructions Recorded Confirmed Last Taken acetaminophen 500 mg tablet 1,000 mg (2 x 500 mg) PO Q8H #0 04/04/24 Unknown (Tylenol Extra Strength) tabs apixaban 2.5 mg tablet (Eliquis) 2.5 mg PO BID 6 weeks #84 tabs 04/04/24 Unknown docusate sodium 100 mg capsule 100 mg PO BID #0 caps 04/04/24 Unknown oxycodone 5 mg tablet 5 - 10 mg (1 - 2 x 5 mg) PO Q4H 04/04/24 Unknown PRN severe pain (scale score 7-10) 5 days #20 tabs Active Medications Generic Name Dose Route Start Last Admin Trade Name Freq PRN Reason Stop Dose Admin Acetaminophen 1,000 mg 04/03/24 14:30 04/04/24 05:32 Acetaminophen 500 Mg Tab PO 05/03/24 14:29 1,000 mg Q8H BARBARA Administration Apixaban 2.5 mg 04/04/24 09:00 04/04/24 07:34 Apixaban 2.5 Mg Tab PO 05/04/24 08:59 2.5 mg BID BARBARA Administration Docusate Sodium 100 mg 04/03/24 21:00 04/04/24 08:29 Docusate Sodium 100 Mg Cap PO 05/03/24 20:59 Not Given BID BARBARA Ketorolac Tromethamine 15 mg 04/03/24 12:00 04/04/24 05:32 Ketorolac Tromethamine 15 Mg/Ml Vial IV 04/05/24 06:01 15 mg Q6H BARBARA Administration Multivitamins 1 tab 04/04/24 09:00 04/04/24 07:34 Multivitamin Tab PO 05/04/24 08:59 1 tab QAM BARBARA Administration Oxycodone HCl 5 - 10 mg 04/03/24 11:35 04/04/24 01:27 EDT Oxycodone Hcl Ir 5 Mg Tab (Immediate Release) PO 04/17/24 11:34 10 mg Q4H PRN Administration Pain or Pre PT Sennosides 17.2 mg 04/03/24 21:00 04/03/24 21:33 Senna 8.6 Mg Tab PO 05/03/24 20:59 Not Given HS BARBARA (1) Closed fracture of right lower leg Encounter type: initial encounter Qualified Code(s): S82.91XA - Unspecified fracture of right lower leg, initial encounter for closed fracture
[2024-04-05 06:25] LABS: Hematocrit (blood only) 36.4 % (37.0-47.0); Hemoglobin 12.3 g/dl (12.0-16.0); Mean Corpuscular Hemoglobin 30.8 pg (25.0-34.0); Mean Corpuscular Hgb Conc 33.8 g/dL (32.0-36.0); Mean Corpuscular Volume 91.2 fL (80.0-100.0); Mean Platelet Volume 11.4 fL (9.4-12.4); Platelet Count 129 K/uL (130-400); RDW Coefficient of Variation 12.3 % (11.5-14.5); RDW Standard Deviation 41.3 fL (36.4-46.3); Red Blood Count 3.99 M/uL (4.20-5.40); White Blood Count 9.14 K/ul (4.8-10.8)
[2024-04-05 07:00] LABS: BUN Creatinine Ratio 40.3 (10-20); Calcium 8.9 mg/dl (8.6-10.3); Creatinine Clr Calc Pharmacy 92.2 ml/min; Potassium 3.8 mmol/L (3.5-5.1)
[2024-04-05 07:07] VITALS: BP 155/71; PULSE 67; TEMP 98.1; O2SAT 95
--- NOTE | 2024-04-05 09:47 | Discharge Summary ---
Discharge Summary Date of Service April 05, 2024 Principal Dx & Hospital Course #1 = Principal Diagnosis (1) Closed fracture of right lower leg: (2) Asymptomatic hypertensive urgency: Plan Patient presented to the emergency room after sustaining a fall while working outside. In the emergency room imaging was significant for fracture of the right distal tibia and proximal fibula shaft. Patient was admitted to the hospital for pain control. Orthopedic consultation was obtained. On 04/03/2024 patient underwent intramedullary nail fixation of the right tibia. Her postoperative course was uneventful. She worked with physical therapy to increase her mobility and learn how to use a walker and be nonweightbearing on the right leg. She steadily improved with this. On the morning of discharge her vital signs were stable. She did have some elevated blood pressure when presented, however this was due to pain and anxiety about her condition. No significant adjustments need to be made to her medical regimen for blood pressure. She was given prescriptions for a walker and a commode. She be discharged home to continue her recuperation at home. She will follow-up with orthopedics as scheduled through their office. She will be on Eliquis for VTE prophylaxis. Notes For Next Care Provider Follow-up with orthopedics Medication Changes From Visit Eliquis for VTE prophylaxis Oxycodone for pain control Admission HPI Per Admitting Provider History of Present Illness Chief Complaint: Right leg fracture Primary Care Provider: Dr. Sigala History obtained from patient, family, and records. No significant medical history. Patient tripped outside her home today causing her to fall down on her right leg. No head trauma, no chest pain, no syncope, no SOB. Achy right lower leg pain. Patient unable to get up. SBP 190s upon EMS arrival at patient's home. Patient transported by EMS to [facility] ER. Patient told she had a Maisonneuve fracture of the right lower leg. Admission for surgery recommended but patient declined. Patient preferred to go to [facility] for orthopedic services following her physician brother's recommendations. Patient transported to [facility] by . Admission Exam Per Admitting Provider See H&P Discharge Exam Constitutional: Alert HEENT: Mucous membranes moist. Lungs: Clear to auscultation, decreased, no wheezes rales or rhonchi CV: S1-S2, regular Abdomen: Soft, nontender, nondistended Extremities: Right lower extremity in posterior splint with Abhinav wrap Neuro: No focal deficits, sensation intact Psych: Cooperative, normal mood Updated Medication List Medication Instructions Recorded Confirmed Type acetaminophen 500 mg tablet 1,000 mg (2 x 500 mg) PO Q8H #0 04/04/24 Rx (Tylenol Extra Strength) tabs apixaban 2.5 mg tablet (Eliquis) 2.5 mg PO BID 6 weeks #84 tabs 04/04/24 Rx docusate sodium 100 mg capsule 100 mg PO BID #0 caps 04/04/24 Rx oxycodone 5 mg tablet 5 - 10 mg (1 - 2 x 5 mg) PO Q4H 04/04/24 Rx PRN severe pain (scale score 7-10) 5 days #20 tabs Hospital Stay Data Consultations 04/02/24 20:31 ED Decision to Admit Stat 04/02/24 23:38 Consult Orthopedic Surgery Routine Procedures Performed Operation Date: 04/03/24 09:00 Actual Procedures p Intramedullary Nail Fixation of Right Tibia(Right) - Franki Canseco, DO Diagnostic Imagining Performed 04/03/24 FL tibia/fibula RT 2V Routine Reviewed imaging, laboratory and diagnostic studies. Pertinent findings as below. WBCs 9.1 Hemoglobin 12.3 Platelets 129 Electrolytes within normal ranges Creatinine 0.67 I refer you to imaging reports for details of fracture Pending Results Patient Have Any Pending Studies at Discharge: No Discharge Instructions Given to Patient (Per Discharging Provider) Please continue to take Tylenol for mild-moderate pain. You can take up to 650mg to 1000mg every 8 hours for pain. You will be sent with Oxycodone, please take 1-2 tablets for severe pain every 4 hours. Please continue a stool softener to ensure a bowel movement every 1-2 days while on oxycodone. Total Time Total Time Spent Total Time Spent (In Minutes): 26
== END 2024-04-05 12:27 | disposition home or self-care (01) | DRG 494 ==
LOC: ED 20:05 → MERGE 21:51 → SUATTDRO 21:51 → 3N 21:51